=== PATIENT | male | born 1990 | race Caucasian/White ===

== ENCOUNTER 2020-09-30 22:21 | Emergency (ER) | payer OTHER ==
[~2020-09-30] VITALS: Ht 175.3 cm; Wt 91.4 kg
[2020-09-30] MEDS ORDERED: ALBU8HFA IH (22:34)
[2020-09-30] MEDS ORDERED: DIVA-112 PO (22:34)
[2020-09-30 23:13] LABS: BASOPHILS % (AUTO) 0.4 % (0.0-2.0); HEMATOCRIT 37.9 % (41-53); HEMOGLOBIN 12.4 g/dL (13.5-17.5); LYMPHOCYTES # (AUTO) 1.4 K/uL (1.0-4.8); MEAN CORPUSCULAR HEMOGLOBIN 27.3 pg (26.0-34.0); MEAN CORPUSCULAR HGB CONC 32.7 G/dL (31.0-37.0); MEAN CORPUSCULAR VOLUME 83 fL (80-100); MONOCYTES # (AUTO) 0.9 K/uL (0.1-1.0); MONOCYTES % (AUTO) 10.1 % (2.0-9.0); NEUTROPHILS # (AUTO) 6.7 K/uL (1.8-7.7); NEUTROPHILS % (AUTO) 73.5 % (40.0-70.0); PLATELET COUNT (AUTO) 348 K/uL (150-450); RED BLOOD CELL COUNT(AUTO) 4.55 MIL/uL (4.50-5.90); RED CELL DISTRIBUTION WIDTH 18.8 % (11.5-14.5)
[2020-09-30 23:16] VITALS: BP 136/99
[2020-09-30 23:29] LABS: ANION GAP 12 mmol/L (8-16); CARBON DIOXIDE 24 mmol/L (22-29); CHLORIDE 106 mmol/L (98-107); GLOMERULAR FILTR. RATE CALC > 60 mL/min (>60); GLUCOSE,RANDOM 95 mg/dL (70-110); POTASSIUM 4.1 mmol/L (3.5-5.1); SODIUM SERUM 142 mmol/L (136-145); UREA NITROGEN, BLOOD 11 mg/dL (7-18)
[2020-09-30 23:33] LABS: AMPHET/METH SCREEN,URINE NEGATIVE (NEGATIVE); BARBITURATE SCREEN, URINE NEGATIVE (NEGATIVE); BENZODIAZEPINES SCREEN,URINE NEGATIVE (NEGATIVE); CANNABINOID SCREEN,URINE POSITIVE (NEGATIVE); COCAINE SCREEN,URINE NEGATIVE (NEGATIVE); METHADONE SCREEN, URINE NEGATIVE (NEGATIVE); OPIATE SCREEN,URINE NEGATIVE (NEGATIVE)
[2020-09-30 23:35] LABS: ALANINE AMINOTRANSFERASE 38 U/L (12-78); ALBUMIN 3.9 g/dL (3.4-5.0); ALKALINE PHOSPHATASE 58 U/L (46-116); ASPARTATE AMINOTRANSFERASE 54 U/L (15-37); BILIRUBIN,TOTAL 0.5 mg/dL (0.1-1.0); TOTAL PROTEIN, SERUM 8.1 g/dL (6.4-8.2)
[2020-09-30 23:46] LABS: PHENCYCLIDINE SCREEN,URINE NEGATIVE (NEGATIVE)
[2020-10-01] MEDS ORDERED: ACET500C4 PO (14:10)
[2020-10-01] MEDS ORDERED: QUET300T2 PO (14:10)
[2020-10-01] MEDS ORDERED: ASPI-1450 PO (14:10)
== END 2020-10-01 00:33 | disposition home or self-care (01) ==
LOC: EMS 22:29
DX: F31.9 Bipolar disorder, unspecified (principal); F69 Unspecified disorder of adult personality and behavior; M54.9 Dorsalgia, unspecified; J45.909 Unspecified asthma, uncomplicated; F17.200 Nicotine dependence, unspecified, uncomplicated; F12.90 Cannabis use, unspecified, uncomplicated
CPT/HCPCS: 36415; 80053; 80307; 85025; 99283; G0480

== ENCOUNTER 2020-10-01 13:54 | Inpatient (IN) | payer OTHER ==
[~2020-10-01] VITALS: Ht 170.2 cm; Wt 93.1 kg
[~2020-10-01 13:54] MED LIST: ALBU8HFA IH; DIVA-112 PO
[2020-10-01] MEDS ORDERED: ASPI-1450 PO (14:10)
[2020-10-01] MEDS ORDERED: ACET500C4 PO (14:10)
[2020-10-01] MEDS ORDERED: QUET300T2 PO (14:10)
[2020-10-01 18:46] LABS: APPEARANCE,URINE CLEAR (CLEAR); GLUCOSE, URINE (UA) NEGATIVE (NEGATIVE); KETONES,URINE TRACE mg/dL (NEGATIVE); LEUKOCYTE ESTERASE ,URINE NEGATIVE (NEGATIVE); NITRATE,URINE NEGATIVE (NEGATIVE); OCCULT BLOOD,URINE NEGATIVE (NEGATIVE); PH,URINE 5.5 (5.0-8.0); PROTEIN,URINE NEGATIVE (NEGATIVE); UROBILINOGEN,URINE 0.2 mg/dL (<=1.0)
[2020-10-01 18:52] LABS: AMPHET/METH SCREEN,URINE NEGATIVE (NEGATIVE); BARBITURATE SCREEN, URINE NEGATIVE (NEGATIVE); BENZODIAZEPINES SCREEN,URINE NEGATIVE (NEGATIVE); CANNABINOID SCREEN,URINE POSITIVE (NEGATIVE); COCAINE SCREEN,URINE NEGATIVE (NEGATIVE); METHADONE SCREEN, URINE NEGATIVE (NEGATIVE); OPIATE SCREEN,URINE NEGATIVE (NEGATIVE)
[2020-10-01 18:53] LABS: PHENCYCLIDINE SCREEN,URINE NEGATIVE (NEGATIVE)
[2020-10-01 18:56] LABS: BILIRUBIN,URINE PRELIM. POSITIVE (NEGATIVE)
[2020-10-01 19:00] LABS: BACTERIA,URINE None Seen /HPF (None Seen); MUCUS,URINE Few LPF (None Seen); RBC,URINE 0-2 /HPF (0-2); SQUAMOUS EPITHELIAL CELL,UR None Seen /LPF (None Seen); WBC,URINE 0-2 /HPF (0-5)
[2020-10-01 19:13] LABS: COVID AG,FIA SOURCE NASOPHARYNGEAL
[2020-10-01 19:34] LABS: BASOPHILS % (AUTO) 0.5 % (0.0-2.0); HEMATOCRIT 38.9 % (41-53); HEMOGLOBIN 12.6 g/dL (13.5-17.5); LYMPHOCYTES # (AUTO) 1.4 K/uL (1.0-4.8); LYMPHOCYTES % (AUTO) 16.6 % (22.0-44.0); MEAN CORPUSCULAR HEMOGLOBIN 27.3 pg (26.0-34.0); MEAN CORPUSCULAR HGB CONC 32.5 G/dL (31.0-37.0); MEAN CORPUSCULAR VOLUME 84 fL (80-100); MONOCYTES # (AUTO) 0.8 K/uL (0.1-1.0); MONOCYTES % (AUTO) 9.8 % (2.0-9.0); NEUTROPHILS # (AUTO) 5.9 K/uL (1.8-7.7); NEUTROPHILS % (AUTO) 71.1 % (40.0-70.0); PLATELET COUNT (AUTO) 350 K/uL (150-450); RED BLOOD CELL COUNT(AUTO) 4.62 MIL/uL (4.50-5.90); RED CELL DISTRIBUTION WIDTH 19.6 % (11.5-14.5)
[2020-10-01] MEDS ORDERED: ZOLPIDEM TARTRATE 10 MG TABLET PO PRN (19:45)
[2020-10-01] MEDS ORDERED: OLANZapine 5 MG RAPDIS TABLET PO PRN ×2 (19:45→20:45)
[2020-10-01 19:49] LABS: ANION GAP 11 mmol/L (8-16); CALCIUM, TOTAL 8.8 mg/dL (8.8-10.5); CARBON DIOXIDE 25 mmol/L (22-29); CHLORIDE 104 mmol/L (98-107); CREATININE 0.81 mg/dL (0.60-1.30); GLOMERULAR FILTR. RATE CALC > 60 mL/min (>60); GLUCOSE,RANDOM 97 mg/dL (70-110); POTASSIUM 4.2 mmol/L (3.5-5.1); SODIUM SERUM 140 mmol/L (136-145); UREA NITROGEN, BLOOD 18 mg/dL (7-18)
[2020-10-01 19:55] LABS: ALANINE AMINOTRANSFERASE 39 U/L (12-78); ALBUMIN 3.8 g/dL (3.4-5.0); ALKALINE PHOSPHATASE 61 U/L (46-116); ASPARTATE AMINOTRANSFERASE 48 U/L (15-37); BILIRUBIN,TOTAL 0.3 mg/dL (0.1-1.0); TOTAL PROTEIN, SERUM 8.3 g/dL (6.4-8.2); VALPROIC ACID 12 mcg/mL (50-100)
[2020-10-01] MEDS: LORazepam 2 MG TABLET PO PRN (20:33)
[2020-10-01] MEDS ORDERED: LOPERAMIDE HCL 2 MG CAPSULE PO PRN (20:45)
[2020-10-01] MEDS ORDERED: TUBERCULIN, PURIFIED PROTEIN DERIVATIVE 5 TU/0.1 ML SYRINGE ID ONE (20:45)
[2020-10-01] MEDS ORDERED: MAG HYDROX/AL HYDROX/SIMETH ES 30 ML SUSPENSION UDCUP PO PRN (20:45)
[2020-10-01] MEDS ORDERED: PALIPERIDONE PALMITATE 234 MG/1.5 ML SYRINGE IM ONE (20:45)
[2020-10-01] MEDS ORDERED: MAGNESIUM HYDROXIDE SUSPENSION 30 ML UDCUP PO PRN (20:45)
[2020-10-01] MEDS ORDERED: PROMETHAZINE HCL 25 MG TABLET PO PRN (20:45)
[2020-10-01] MEDS ORDERED: LORazepam 2 MG TABLET PO PRN (20:45)
[2020-10-01] MEDS ORDERED: GuaiFENesin/D-METHORPHAN [SUGAR-FREE] 200-20MG/10 ML SYRUP UDCUP PO PRN (20:45)
[2020-10-01] MEDS ORDERED: OLANZapine 5 MG RAPDIS TABLET PO SCH (21:00)
[2020-10-02] MEDS: ZOLPIDEM TARTRATE 10 MG TABLET PO PRN (00:29)
[2020-10-02 02:36] VITALS: BP 140/88
[2020-10-02 02:38] VITALS: BP 140/88
[2020-10-02] MEDS: MELATONIN 5 MG TABLET PO SCH ×2 (02:41→21:43)
[2020-10-02 07:20] LABS: HEMOGLOBIN A1C 5.7 % (3.8-5.6)
[2020-10-02 07:21] LABS: CHOL/HDL RATIO 2.6 (4.2-7.3); FREE T4 (FREE THYROXINE) 1.08 ng/dL (0.76-1.46); THYROID STIMULATING HORMONE 3.47 uIU/mL (0.36-3.74)
[2020-10-02] MEDS: THIAMINE 100 MG TABLET PO SCH ×2 (08:15→17:08)
[2020-10-02] MEDS: MULTIVITAMINS WITH MINERALS, THERAPEUTIC TABLET PO SCH (08:15)
[2020-10-02] MEDS: OMEGA-3/DHA/EPA/FISH OIL 1,000 MG CAPSULE PO SCH (08:15)
[2020-10-02] MEDS: FOLIC ACID 1 MG TABLET PO SCH (08:15)
[2020-10-02] MEDS: NALTREXONE HCL 50 MG TABLET PO SCH (08:16)
[2020-10-02 08:33] VITALS: BP 137/81
[2020-10-02 08:45] VITALS: BP 137/81
[2020-10-02] MEDS: ACETAMINOPHEN 325 MG TABLET PO PRN (12:10)
[2020-10-02 16:50] VITALS: BP 125/102
[2020-10-02] MEDS: HydrOXYzine PAMOATE 50 MG CAPSULE PO PRN (17:08)
[2020-10-02] MEDS: OLANZapine 10 MG RAPDIS TABLET PO SCH (21:43)
[2020-10-03 08:25] VITALS: BP 137/96
[2020-10-03] MEDS: THIAMINE 100 MG TABLET PO SCH ×2 (08:49→15:57)
[2020-10-03] MEDS: FOLIC ACID 1 MG TABLET PO SCH (08:49)
[2020-10-03] MEDS: MULTIVITAMINS WITH MINERALS, THERAPEUTIC TABLET PO SCH (08:49)
[2020-10-03] MEDS: OMEGA-3/DHA/EPA/FISH OIL 1,000 MG CAPSULE PO SCH (08:49)
[2020-10-03] MEDS: DIVALPROEX SODIUM 500 MG ER TABLET PO SCH ×2 (08:49→15:57)
[2020-10-03] MEDS: NALTREXONE HCL 50 MG TABLET PO SCH (08:49)
[2020-10-03] MEDS: NICOTINE 21 MG/24 HOUR PATCH TD SCH (13:54)
[2020-10-03] MEDS: LORazepam 2 MG TABLET PO PRN (15:57)
[2020-10-03 16:21] VITALS: BP 164/95
[2020-10-03] MEDS ORDERED: PALIPERIDONE PALMITATE 234 MG/1.5 ML SYRINGE IM ONE (19:00)
[2020-10-03] MEDS: OLANZapine 10 MG RAPDIS TABLET PO SCH (20:35)
[2020-10-03] MEDS: MELATONIN 5 MG TABLET PO SCH (20:35)
[2020-10-03] MEDS: ZOLPIDEM TARTRATE 10 MG TABLET PO PRN (21:00)
[2020-10-04] MEDS: LORazepam 2 MG TABLET PO PRN (00:02)
[2020-10-04 05:01] VITALS: BP 154/90
[2020-10-04] MEDS: HydrOXYzine PAMOATE 50 MG CAPSULE PO PRN (05:43)
[2020-10-04] MEDS: FOLIC ACID 1 MG TABLET PO SCH (08:43)
[2020-10-04] MEDS: MULTIVITAMINS WITH MINERALS, THERAPEUTIC TABLET PO SCH (08:43)
[2020-10-04] MEDS: DIVALPROEX SODIUM 500 MG ER TABLET PO SCH ×2 (08:43→16:37)
[2020-10-04] MEDS: THIAMINE 100 MG TABLET PO SCH ×2 (08:43→16:37)
[2020-10-04] MEDS: NALTREXONE HCL 50 MG TABLET PO SCH (08:43)
[2020-10-04] MEDS: OMEGA-3/DHA/EPA/FISH OIL 1,000 MG CAPSULE PO SCH (08:43)
[2020-10-04] MEDS: NICOTINE 21 MG/24 HOUR PATCH TD SCH (08:44)
[2020-10-04] MEDS: MONTELUKAST SODIUM 10 MG TABLET PO SCH (08:45)
[2020-10-04] MEDS: GuanFACINE HCL 1 MG TABLET PO SCH ×3 (08:46→16:37)
[2020-10-04 08:57] VITALS: BP 139/73
[2020-10-04] MEDS: ALBUTEROL SULFATE HFA 90 MCG/PUFF 8 GM INHALER IH PRN (09:06)
[2020-10-04 16:56] VITALS: BP 131/82
[2020-10-04] MEDS ORDERED: NALT50TA PO (20:16)
[2020-10-04] MEDS ORDERED: GUAN1TAB2 PO (20:16)
[2020-10-04] MEDS ORDERED: MELA5TAB40 PO (20:16)
[2020-10-04] MEDS ORDERED: DIVA-80 PO (20:16)
[2020-10-04] MEDS ORDERED: OLAN10TA26 PO (20:16)
[2020-10-04] MEDS ORDERED: OMEG-135 PO (20:16)
[2020-10-04] MEDS: MELATONIN 5 MG TABLET PO SCH (20:20)
[2020-10-04] MEDS: OLANZapine 10 MG RAPDIS TABLET PO SCH (20:20)
[2020-10-04] MEDS: ZOLPIDEM TARTRATE 10 MG TABLET PO PRN (20:24)
[2020-10-05 00:44] VITALS: BP 127/84
[2020-10-05] MEDS: ACETAMINOPHEN 325 MG TABLET PO PRN ×3 (00:45→20:20)
[2020-10-05] MEDS: OMEGA-3/DHA/EPA/FISH OIL 1,000 MG CAPSULE PO SCH (08:13)
[2020-10-05] MEDS: GuanFACINE HCL 1 MG TABLET PO SCH ×3 (08:13→16:34)
[2020-10-05] MEDS: FOLIC ACID 1 MG TABLET PO SCH (08:13)
[2020-10-05] MEDS: NALTREXONE HCL 50 MG TABLET PO SCH (08:13)
[2020-10-05] MEDS: MULTIVITAMINS WITH MINERALS, THERAPEUTIC TABLET PO SCH (08:13)
[2020-10-05] MEDS: THIAMINE 100 MG TABLET PO SCH ×2 (08:13→16:34)
[2020-10-05] MEDS: DIVALPROEX SODIUM 500 MG ER TABLET PO SCH ×2 (08:13→16:34)
[2020-10-05] MEDS: MONTELUKAST SODIUM 10 MG TABLET PO SCH (08:13)
[2020-10-05 08:21] VITALS: BP 149/80
[2020-10-05] MEDS: NICOTINE 21 MG/24 HOUR PATCH TD SCH (08:21)
[2020-10-05] MEDS: ALBUTEROL SULFATE HFA 90 MCG/PUFF 8 GM INHALER IH PRN ×2 (08:56→14:50)
[2020-10-05] MEDS ORDERED: PALIPERIDONE PALMITATE 156 MG/ML SYRINGE IM ONE (09:00)
[2020-10-05 16:32] VITALS: BP 97/62
[2020-10-05] MEDS: MELATONIN 5 MG TABLET PO SCH (20:18)
[2020-10-05] MEDS: OLANZapine 10 MG RAPDIS TABLET PO SCH (20:18)
[2020-10-06 00:32] VITALS: BP 136/84
[2020-10-06] MEDS: ZOLPIDEM TARTRATE 10 MG TABLET PO PRN ×2 (00:44→21:59)
[2020-10-06] MEDS: LORazepam 2 MG TABLET PO PRN ×2 (05:59→21:25)
[2020-10-06 06:00] VITALS: BP 149/96
[2020-10-06] MEDS: OMEGA-3/DHA/EPA/FISH OIL 1,000 MG CAPSULE PO SCH (08:23)
[2020-10-06] MEDS: GuanFACINE HCL 1 MG TABLET PO SCH ×3 (08:23→17:57)
[2020-10-06] MEDS: THIAMINE 100 MG TABLET PO SCH ×2 (08:23→17:57)
[2020-10-06] MEDS: MULTIVITAMINS WITH MINERALS, THERAPEUTIC TABLET PO SCH (08:23)
[2020-10-06] MEDS: FOLIC ACID 1 MG TABLET PO SCH (08:23)
[2020-10-06] MEDS: NALTREXONE HCL 50 MG TABLET PO SCH (08:23)
[2020-10-06] MEDS: MONTELUKAST SODIUM 10 MG TABLET PO SCH (08:23)
[2020-10-06] MEDS: DIVALPROEX SODIUM 500 MG ER TABLET PO SCH ×2 (08:23→17:57)
[2020-10-06] MEDS: NICOTINE 21 MG/24 HOUR PATCH TD SCH (08:27)
[2020-10-06 09:31] VITALS: BP 140/69
[2020-10-06 16:00] VITALS: BP 119/67
[2020-10-06] MEDS: MELATONIN 5 MG TABLET PO SCH (21:22)
[2020-10-06] MEDS: OLANZapine 10 MG RAPDIS TABLET PO SCH (21:24)
[2020-10-07] MEDS: OMEGA-3/DHA/EPA/FISH OIL 1,000 MG CAPSULE PO SCH (08:07)
[2020-10-07] MEDS: FOLIC ACID 1 MG TABLET PO SCH (08:07)
[2020-10-07] MEDS: MONTELUKAST SODIUM 10 MG TABLET PO SCH (08:07)
[2020-10-07] MEDS: NALTREXONE HCL 50 MG TABLET PO SCH (08:07)
[2020-10-07] MEDS: MULTIVITAMINS WITH MINERALS, THERAPEUTIC TABLET PO SCH (08:07)
[2020-10-07] MEDS: THIAMINE 100 MG TABLET PO SCH ×2 (08:07→17:18)
[2020-10-07] MEDS: DIVALPROEX SODIUM 500 MG ER TABLET PO SCH ×2 (08:07→17:18)
[2020-10-07] MEDS: GuanFACINE HCL 1 MG TABLET PO SCH ×3 (08:07→17:18)
[2020-10-07] MEDS: NICOTINE 21 MG/24 HOUR PATCH TD SCH (08:11)
[2020-10-07] MEDS ORDERED: PALIPERIDONE PALMITATE 156 MG/ML SYRINGE IM ONE (09:00)
[2020-10-07 09:56] VITALS: BP 132/71
[2020-10-07] MEDS: ALBUTEROL SULFATE HFA 90 MCG/PUFF 8 GM INHALER IH PRN (12:23)
[2020-10-07] MEDS: LORazepam 2 MG TABLET PO PRN ×2 (12:23→21:16)
[2020-10-07 14:08] LABS: COVID AG,FIA SOURCE NASAL SWAB
[2020-10-07 16:00] VITALS: BP 119/65
[2020-10-07] MEDS: OLANZapine 10 MG RAPDIS TABLET PO SCH (21:15)
[2020-10-07] MEDS: MELATONIN 5 MG TABLET PO SCH (21:16)
[2020-10-07] MEDS: ZOLPIDEM TARTRATE 10 MG TABLET PO PRN (21:41)
[2020-10-08 01:00] VITALS: BP 129/85
[2020-10-08] MEDS: ACETAMINOPHEN 325 MG TABLET PO PRN ×3 (01:08→16:14)
[2020-10-08] MEDS: OMEGA-3/DHA/EPA/FISH OIL 1,000 MG CAPSULE PO SCH (08:33)
[2020-10-08] MEDS: NICOTINE 21 MG/24 HOUR PATCH TD SCH (08:33)
[2020-10-08] MEDS: THIAMINE 100 MG TABLET PO SCH ×2 (08:34→16:10)
[2020-10-08] MEDS: DIVALPROEX SODIUM 500 MG ER TABLET PO SCH ×2 (08:34→16:10)
[2020-10-08] MEDS: NALTREXONE HCL 50 MG TABLET PO SCH (08:34)
[2020-10-08] MEDS: FOLIC ACID 1 MG TABLET PO SCH (08:34)
[2020-10-08] MEDS: MULTIVITAMINS WITH MINERALS, THERAPEUTIC TABLET PO SCH (08:34)
[2020-10-08] MEDS: GuanFACINE HCL 1 MG TABLET PO SCH ×3 (08:35→16:10)
[2020-10-08] MEDS: MONTELUKAST SODIUM 10 MG TABLET PO SCH (08:35)
[2020-10-08 08:50] VITALS: BP 121/78
[2020-10-08] MEDS: LORazepam 2 MG TABLET PO PRN (14:08)
[2020-10-08 17:02] VITALS: BP 130/70
[2020-10-08] MEDS ORDERED: FOLI0.4T6 PO ×3 (17:12→17:19)
[2020-10-08] MEDS ORDERED: MONT-35 PO (17:14)
[2020-10-08] MEDS ORDERED: THIA100T80 PO (17:20)
[2020-10-08] MEDS ORDERED: MULT-248 PO (17:20)
[2020-10-08] MEDS ORDERED: FOLI-130 PO (17:24)
== END 2020-10-08 18:10 | disposition home or self-care (01) | DRG 885 ==
LOC: EMS 14:22 → 3EI 19:00
PROVIDERS: ADMIT Psychiatry & Neurology Psychiatry; ATTEND Psychiatry & Neurology Psychiatry
DX: F31.2 Bipolar disorder, current episode manic severe with psychotic features (principal); F12.90 Cannabis use, unspecified, uncomplicated; D64.9 Anemia, unspecified; F43.10 Post-traumatic stress disorder, unspecified; J45.909 Unspecified asthma, uncomplicated; Z55.9 Problems related to education and literacy, unspecified; Z59.9 Problem related to housing and economic circumstances, unspecified; Z65.3 Problems related to other legal circumstances; F17.210 Nicotine dependence, cigarettes, uncomplicated; Z91.19 Patient's noncompliance with other medical treatment and regimen; Z20.822 Contact with and (suspected) exposure to COVID-19
CPT/HCPCS: 80053; 80061; 80164; 81001; 83036; 84439; 84443; 85025; 86592; 99285; G0480; J3535; Q9967

== ENCOUNTER 2020-10-13 04:03 | Emergency (ER) | payer OTHER ==
[~2020-10-13 04:03] MED LIST changes: -ALBU8HFA IH; +DIVA-80 PO; +FOLI-130 PO; +GUAN1TAB2 PO; +MELA5TAB40 PO; +MONT-35 PO; +MULT-248 PO; +NALT50TA PO; +OLAN10TA26 PO; +OMEG-135 PO; +THIA100T80 PO
[2020-10-13 07:30] VITALS: BP 129/67
== END 2020-10-13 07:30 | disposition home or self-care (01) ==
LOC: EMS 04:08
DX: S93.401A Sprain of unspecified ligament of right ankle, initial encounter (principal); G89.29 Other chronic pain; J45.909 Unspecified asthma, uncomplicated; F31.9 Bipolar disorder, unspecified; F17.210 Nicotine dependence, cigarettes, uncomplicated; F12.90 Cannabis use, unspecified, uncomplicated; X50.1XXA Overexertion from prolonged static or awkward postures, initial encounter; Y93.89 Activity, other specified; Y92.89 Other specified places as the place of occurrence of the external cause; Y99.8 Other external cause status
CPT/HCPCS: 99283